=== PATIENT | male | born 1990 | race Caucasian/White ===

== ENCOUNTER 2016-10-16 20:26 | Emergency (ER) | payer OTHER ==
[~2016-10-16] VITALS: Ht 172.7 cm; Wt 74.5 kg
[2016-10-16 20:33] VITALS: Ht 172.7 cm; Wt 74.5 kg
[2016-10-16] MEDS ORDERED: NYST1000 PO (22:22)
--- NOTE | 2016-10-17 00:26 | ERD ---
ER Documentation Chief Complaint Date/Time DATE: 10/17/16 TIME: 00:21 Chief Complaint white bumps on side of mouth this am, intermittent abd. pain/D x 1-2 months HPI This is a 25-year-old male who presents emergency department for oral lesions to the left and right side of his mouth. Patient states he noticed the bumps this morning when he felt something unusual. Patient denies pain. No drainage from lesions. Lesions are not itchy. No difficulty swallowing. No muffled voice. No fevers or chills. Patient states he went to his primary care provider earlier for a Marian deal infection in his stool and was given a prescription for nystatin pills. No significant past medical or surgical history. ROS All systems reviewed and are negative except as per history of present illness. Medications Home Meds Active Scripts Nystatin (Nystatin) 100,000 Unit/1 Ml Oral.susp, 4 ML PO QID for 7 Days, OZ Swish and swallow Prov:GAMAL MICHAUD NP 10/16/16 Allergies Allergies: Coded Allergies: No Known Allergy (Unverified , 10/16/16) PMhx/Soc Medical and Surgical Hx: pt denies Medical Hx, pt denies Surgical Hx Physical Exam Vitals Vital Signs Date Time Temp Pulse Resp B/P Pulse Ox O2 Delivery O2 Flow Rate FiO2 10/16/16 20:33 98.0 78 20 155/82 99 Physical Exam Const: Alert, [id number] Head: Atraumatic Eyes: Normal Conjunctiva ENT: Normal External Ears, Nose and Mouth. small multiple white and clear cysts about [id number] scattered throughout left and right side of buccal mucosa. No erythema or exudate to posterior pharynx. Non-enlarged tonsils. Neck: Full range of motion..~ No meningismus. Resp: Clear to auscultation bilaterally Cardio: Regular rate and rhythm, no murmurs Abd: Soft, non tender, non distended. Normal bowel sounds Skin: No petechiae or rashes Back: No midline or flank tenderness Ext: No cyanosis, or edema Neur: Awake and alert Psych: Normal Mood and Affect Procedures/MDM ED COURSE: The patient was stable throughout ED course. I kept the patient and/or family informed of laboratory and diagnostic imaging results throughout the ED course. MDM: 25-year-old male presents to the emergency department for oral lesions buccal mucosa noticed earlier today. Patient is not having any pain or itching. No drainage from lesions. No fevers or chills. Vital signs are stable. No signs or symptoms of respiratory distress. No difficulty swallowing or muffled voice. Low suspicion for bacterial infection, cellulitis or herpes simplex virus, Patient diagnosis is oral lesions likely fungal Patient is appropriate for outpatient management will be given prescription for nystatin oral solution. Instructed patient to follow-up with primary care provider in the next 1-2 days for reassessment and additional management. Instructed patient he may need to have a biopsy done of these lesions. Return to ED for any high fever, chest pain, difficulty breathing, shortness breath, wheezing, vomiting, diarrhea, abdominal pain or any new or worsening symptoms. Patient verbalizes understanding. All questions answered at discharge. Departure Diagnosis: Primary Impression: Oral lesion Condition: Stable Patient Instructions: Fungal Infection, Skin [General] Referrals: [facility] YOU HAVE RECEIVED A MEDICAL SCREENING EXAM AND THE RESULTS INDICATE THAT YOU DO NOT HAVE A CONDITION THAT REQUIRES URGENT TREATMENT IN THE EMERGENCY DEPARTMENT. FURTHER EVALUATION AND TREATMENT OF YOUR CONDITION CAN WAIT UNTIL YOU ARE SEEN IN YOUR DOCTORS OFFICE WITHIN THE NEXT 1-2 DAYS. IT IS YOUR RESPONSIBILITY TO MAKE AN APPOINTMENT FOR FOL-UP CARE. IF YOU HAVE A PRIMARY DOCTOR --you should call your primary doctor and schedule an appointment IF YOU DO NOT HAVE A PRIMARY DOCTOR YOU CAN CALL OUR PHYSICIAN REFERRAL HOTLINE AT IF YOU CAN NOT AFFORD TO SEE A PHYSICIAN YOU CAN CHOSE FROM THE FOLLOWING [facility] [address] [facility]. [facility] [address] [facility]. [facility] [address] [facility]. [facility] [address] [facility] [address] [facility]. [facility]. [address] [facility]. [facility] YOU HAVE RECEIVED A MEDICAL SCREENING EXAM AND THE RESULTS INDICATE THAT YOU DO NOT HAVE A CONDITION THAT REQUIRES URGENT TREATMENT IN THE EMERGENCY DEPARTMENT. FURTHER EVALUATION AND TREATMENT OF YOUR CONDITION CAN WAIT UNTIL YOU ARE SEEN IN YOUR DOCTORS OFFICE WITHIN THE NEXT 1-2 DAYS. IT IS YOUR RESPONSIBILITY TO MAKE AN APPOINTMENT FOR FOLOW-UP CARE. IF YOU HAVE A PRIMARY DOCTOR --you should call your primary doctor and schedule and appointment IF YOU DO NOT HAVE A PRIMARY DOCTOR YOU CAN CALL OUR PHYSICIAN REFERRAL HOTLINE AT . IF YOU CAN NOT AFFORD TO SEE A PHYSICIAN YOU CAN CHOSE FROM THE FOLLOWING [facility] INSTITUTIONS: [facility] [address] [place] [address] [facility] [address] [place] [address] [facility] [address] [place] [address] Additional Instructions: Call your primary care doctor TOMORROW for an appointment during the next 2-3 days.See the doctor sooner or return here if your condition worsens before your appointment time. Return to ED for any high fever, chest pain, difficulty breathing, shortness breath, wheezing, vomiting, diarrhea, abdominal pain or any new or worsening symptoms. GAMAL MICHAUD NP Oct 17, 2016 00:26
== END 2016-10-16 22:45 | disposition home or self-care (01) ==
LOC: FTE 20:26
DX: K13.79 Other lesions of oral mucosa (principal)
CPT/HCPCS: 99283